=== PATIENT | male | born 1980 | race Caucasian/White ===

== ENCOUNTER 2016-12-11 06:21 | Emergency (ER) | payer OTHER ==
[2016-12-11 06:41] LABS: EOSINOPHIL COUNT 0.4 K/uL (0-0.3); IMMATURE GRANULOCYTE (%) 0.2 % (0.0-0.7); IMMATURE GRANULOCYTE COUNT 0.2 K/uL; LYMPHOCYTE COUNT 2.7 K/uL (1.0-2.8); MCH 28.7 PG (29.0-34.0); MCHC 34.4 G/DL (30.0-36.0); MCV 83.5 FL (86-99); MEAN PLAT.VOLUME 10.3 uM^3 (9.0-12.4); MONOCYTE (%) 8.9 % (3-12); MONOCYTE COUNT 0.7 K/uL (0-0.8); NEUTROPHIL (%) 52.1 % (45-76); NEUTROPHIL COUNT 4.3 K/uL (1.8-6.4); PLATELET COUNT 277 K/uL (156-360); RBC DIS.WIDTH-SD 39.1 % (39-53); RED BLOOD COUNT 5.15 M/uL (4.00-5.50); WHITE BLOOD COUNT 8.2 K/uL (4.1-10.2)
[2016-12-11 06:48] LABS: AMYLASE 41 IU/L (1-118)
[2016-12-11 06:49] LABS: CHLORIDE 106 mEq/L (99-109); SODIUM 143 mEq/L (136-147)
[2016-12-11 06:50] LABS: GLUCOSE 106 mg/dL (70-99)
[2016-12-11 06:52] LABS: ANION GAP 10 MEQ/L (2-14)
[2016-12-11 06:53] LABS: SERUM ETHYL ALCOHOL < 10 mg/dL
[2016-12-11 06:54] LABS: GFR ESTIMATE (CALCULATED) > 59 mL/min/
[2016-12-11 06:55] LABS: UREA NITROGEN (BUN) 11 mg/dL (9-23)
[2016-12-11 06:57] LABS: LIPASE 26 U/L (1.0-51.0)
[2016-12-11 07:13] LABS: ADD MIUA? YES; BILIRUBIN NEGATIVE; BLOOD NEGATIVE; COLOR YELLOW ((YELLOW)); GLUCOSE (STRIP) NEGATIVE; KETONES NEGATIVE; LEUKOCYTES NEGATIVE; NITRITE NEGATIVE; PROTEIN (STRIP) NEGATIVE; SPECIFIC GRAVITY 1.024 (1.000-1.030); UROBILINOGEN 0.2 MG/DL (0.2-1.0)
[2016-12-11 07:21] LABS: AMPHETAMINE NEGATIVE (500 ng/mL); BARBITURATES NEGATIVE (200 ng/mL); BENZODIAZEPINES NEGATIVE (150 ng/mL); COCAINE PRESUMPTIVE POSITIVE (150 ng/mL); INTERNAL CONTROLS VALID? YES; METHADONE NEGATIVE (200 ng/mL); METHAMPHETAMINE NEGATIVE (500 ng/mL); OPIATES (MORPHINE) NEGATIVE (100 ng/mL); OXYCODONE PRESUMPTIVE POSITIVE (100 ng/mL); PHENCYCLIDINE NEGATIVE (25 ng/mL); PROPOXYPHENE NEGATIVE (300 ng/mL); THC CANNABINOIDS NEGATIVE (50 ng/mL); TRICYCLIC ANTIDEPRESSANTS NEGATIVE (300 ng/mL)
[2016-12-11 07:22] LABS: ADD MEDTOX COMMENT Y
[2016-12-11 07:38] LABS: BACTERIA NONE SEEN /HPF; EPITHELIAL CELLS RARE /HPF; MUCUS 2+ /LPF; RED BLOOD CELLS 0-5 /HPF (0-5); UCUL ADDED? NO; WHITE BLOOD CELLS 0-5 /HPF (0-5)
[2016-12-11] MEDS ORDERED: MOTRIN800 MG PO (09:01)
== END 2016-12-11 09:34 | disposition home or self-care (01) ==
LOC: TRA 06:21
PROVIDERS: Emergency Medicine
DX: M62.838 Other muscle spasm (principal); T14.8 Other injury of unspecified body region; M54.2 Cervicalgia; S00.91XA Abrasion of unspecified part of head, initial encounter; V49.10XA Passenger injured in collision with unspecified motor vehicles in nontraffic accident, initial encounter
CPT/HCPCS: 70450; 71260; 72125; 74177; 80048; 81003; 82150; 83690; 84999; 85025; 86850; 86900; 86901; 99281; 99285; G0480